=== PATIENT | female | born 1955 | race Caucasian/White ===

== ENCOUNTER 2025-01-30 14:49 | Outpatient (AMB) | payer OTHER, SELFPAY ==
--- NOTE | 2025-01-30 14:51 | MHC.OFFVIS ---
Vital Signs 01/30/25 14:53 Height 5 ft 6 in BMI Reason not done Patient refused/unable BP 138/80 Blood Pressure Location Rt brachial Position Sitting Pulse 93 Pulse Source Pulse Oximeter Pulse Oximetry (%) 95 Oxygen Delivery Method Room Air Intake Visit Reasons: alexandr Allergies metronidazole [From Flagyl] Allergy (Mild, Verified 01/30/25 14:57) Joint Pain HPI Comments Details: Dr. Salmon is here for pulmonary evaluation. The patient is a 69 year woman with known history of significant daytime drowsiness. She does have an elevated Social Circle score of 11/24. The patient did have a sleep study back in 2020 was found to have an AHI of 67 events per hour. Therefore she was diagnosed with very severe ALEXANDR. She was quickly placed on PAP therapy. The rest med AirSense 11. With a nasal mask. But he has been very difficult for her to tolerated because she gets significant nasal congestion when she start using it. She feels like it is almost like an allergic reaction. She has not tried any other mask except the N30 I mask. On further questioning she does have issues with significant nasal congestion. She has a perforated septum although she is not use any recreational drugs she is not aware why the cartilage broke down. She denies any other cartilage involvement. She does have significant irritation. To the nasal passages and does get pressure sensation. She has never seen ENT for this. In the meantime I do believe that is important to further investigate was going on with her sinuses in order to be able to tolerate CPAP or APAP effectively. The patient has not had any any allergy testing which would be reasonable as well. As far as nasal spray she is concerned about using any nasal steroids. Specially with the epistaxis in the significant inflammation limitations of mucosa lining I do believe the inhaled cortical steroids could be dangerous. She is using Claritin and antihistamines as needed with some partial improvement. I will go ahead and send a ipratropium nasal spray just to see if we can dry up a little bit as she tries to go back to using her CPAP. I did reach out to the [employer] to get access to LV. I do believe she needs a mask fitting with a fullface mask, F40 to properly treat her sleep apnea without irritating her significant inflammation of the nasal passages. I did provide her with the Neti bottle. She understands she can only use it with distilled water and we can do it as a trial as we refer the CAT scan. [facility] Medical History (Updated 01/30/25 @ 20:59 by Antonio Olivera MD) ALEXANDR (obstructive sleep apnea) Chronic sinusitis Epistaxis Allergy Social History (Updated 01/30/25 @ 14:57 by Mariam Garzon CMA) Patient Tobacco Use Status: Never used Tobacco Review of Systems Const Reports daytime sleepiness and Reports weight loss Eyes Reports no additional complaints ENT Reports epistaxis, Reports nasal congestion, Reports nasal discharge, Reports nasal obstruction, Reports post nasal drip and Reports sinus pressure Card Denies chest pain Resp Reports cough GI Reports no additional complaints Musc Reports no additional complaints Skin/Breast Denies rash Endo Reports no additional complaints Adan/Lymph Reports no additional complaints Aller/Immun Reports no additional complaints Physical Exam Vital Signs: Last Vital Signs Pulse 93 01/30/25 14:53 BP 138/80 01/30/25 14:53 Pulse Ox 95 01/30/25 14:53 Oxygen Delivery Method Room Air 01/30/25 14:53 Const General: comfortable HEENT General nose exam: Abnormal mucous membranes and turbinates present erythematous (R>L) bilateral, Abnormal nasal septum present perforated (bleeding), Nasal discharge present and Epistaxis present Neck Neck: Yes supple Chest Chest palpation & inspection: normal inspection of the chest Resp Effort & Inspection: normal respiratory effort Auscultation: clear to auscultation bilaterally Cardio Heart sounds: S1 normal heart sound present and S2 normal heart sound present GI Palpation (GI): Soft to palpation Skin General skin exam: no rashes or lesions noted Extrem General: Yes no clubbing, cyanosis or edema Assessment & Plan Assessment & Plan (1) Allergy: Code(s): T78.40XA - Allergy, unspecified, initial encounter Category: Medical Qualifiers: Encounter type: initial encounter Qualified Code(s): T78.40XA - Allergy, unspecified, initial encounter (2) Epistaxis: Code(s): R04.0 - Epistaxis Category: Medical (3) Chronic sinusitis: Code(s): J32.9 - Chronic sinusitis, unspecified Category: Medical Qualifiers: Sinusitis location: unspecified location Qualified Code(s): J32.9 - Chronic sinusitis, unspecified (4) Perforated nasal septum: Code(s): J34.89 - Other specified disorders of nose and nasal sinuses Category: Medical (5) ALEXANDR (obstructive sleep apnea): Code(s): G47.33 - Obstructive sleep apnea (adult) (pediatric) Category: Medical Plan Bloodwork and Allergy testing CT sinus to assess further the abnormalities. septal perforation due to an unclear etiology. No recreational drugs life long. Need to R/O smodering infections Ipratropium nasal spray as needed Sinus rinse trial with Distilled water and packet PM Restart APAP with Full face mask, F40. Requesting supplies from her Isiah [facility]HECO F/U 4-6 weeks Orders: Orders Resp Allergy Profile Region I Today R91.1 - Solitary pulmonary nodule, T78.40XA - Allergy, unspecified, initial encounter Complete Blood Count Auto Diff Today T78.40XA - Allergy, unspecified, initial encounter Erythrocyte Sedimentation Rate Today T78.40XA - Allergy, unspecified, initial encounter CT sinus wo IV con Today J32.9 - Chronic sinusitis, unspecified, J34.89 - Other specified disorders of nose and nasal sinuses, R04.0 - Epistaxis Medications: New ipratropium bromide administer into each nostril 2 sprays intranasal TID PRN 15 mL 6RF allergy symptoms ipratropium bromide administer into each nostril 2 sprays intranasal TID PRN 15 mL 6RF allergy symptoms Coding Level of Care Code New Pt Level 5 (15909) Diagnoses Allergy, initial encounter T78.40XA Encounter type: initial encounter Epistaxis R04.0 Chronic sinusitis, unspecified location J32.9 Sinusitis location: unspecified location Perforated nasal septum J34.89 ALEXANDR (obstructive sleep apnea) G47.33 Time Spent (min) 60
[2025-01-30 14:53] VITALS: BP 138/80; PULSE 93; O2SAT 95
--- OUTSIDE RECORDS SUMMARY | 2025-01-30 17:24 | XMS_ITS | Encounter Summary ---
Author Organization [facility] Address [address] [place] [address] Care Team Providers Care Blasting Worker Name Role Phone Colette Holman MD Primary Care Provider [phone] Reason for Referral * Consultation (Routine) - Authorized Specialty Diagnoses / Procedures Referred By Contандрей t Referred To Contact Dermatology Diagnoses Atypical pigmented skin lesion Colette Holman MD [address] [place], [place] Phone: tel: fax: [facility] [address] [place], [place] Phone: tel: Referral ID Status Reason Start Date Expiration Date Visits Requested Visits Authorized [id number] Authorized Specialty Services Required 01/27/2025 01/26/2026 10 10 Reason for Visit * Reason Comments Sleep Apnea Encounter Details Date Type Department Care Team ([facility] st Contact Info) Description 01/26/2025 2:00 PM EDT Office Visit Adult Medicine [facility] [place] [address] [place] [address] Colette Holman MD [address] [place] [address] White coat syndrome with hypertension (Primary Dx); ALEXANDR (obstructive sleep apnea); Atypical pigmented skin lesion; History of squamous cell carcinoma in situ (SCCIS) of skin; Hyperlipidemia, unspecified hyperlipidemia type Social History Tobacco Use Types Packs/Day Years Used Date Smoking Tobacco: Never Alcohol Use Standard Drinks/Week Comments Never 0 (1 standard drink = 0.6 oz pur e alcohol) Housing Instability Answer Date Recorde d Are you worried that in the next 2 months you may not have stable housing? No 01/25/2025 Food Access & Nutrition Answer Date Rec orded Do you have access to a vari ety of food including fruits and vegetables? Yes 01/25/2025 Access to Healthcare Answer Date Record ed Within the last 3 months, ho w many times did you visit the emergency department for your medical care? 0 01/25/2025 Health Literacy Answer Date Recorded How often do you need to hav e someone help you when you read instructions, pamphlets, or other written material from your doctor or pharmacy? Never 01/25/2025 Caregiver: How often do you need to have someone help you when you read instructions, pamphlets, or other written material from your doctor or pharmacy? Not on file 01/25/2025 Financial Risk Answer Date Recorded How hard is it for you to pa y for the very basics like food, housing, medical care, and air conditioning / heating? Not very hard 01/25/2025 Transportation Answer Date Recorded Has the lack of transportati on kept you from meetings, work, or from getting things needed for daily living? No Has the lack of transportati on kept you from medical appointments or from getting medications? No 01/25/2025 Social Isolation Answer Date Recorded How often do you feel lonely or isolated from th ose around you? Never 01/25/2025 Food Risk Answer Date Recorded Within the past 12 months we worried whether our food would run out before we got money to buy more. Never true 01/25/2025 Within the past 12 months th e food we bought just didn't last and we didn't have money to get more. Never true 01/25/2025 Dependent Care Answer Date Recorded Do you need help finding or paying for care for your loved ones. For example, child support specialist or elderly care for an older adult? No 01/25/2025 Education Answer Date Recorded Do you think completing more education or training, like finishing a GED, going to college, or learning a trade, would be helpful for you? No 01/25/2025 Employment and Income Answer Date Recor ded During the last four weeks, have you been actively looking for work? No 01/25/2025 Living Situation Answer Date Recorded What is your living situation? 0 01/25/2025 Comments Unknown Sex and Gender Information Value Date Recorded Sex Assigned at Female 01/25/2025 2:04 PM EDT Legal Sex Female 9:30 AM EST Gender Identity Female 01/25/2025 2:04 PM EDT Sexual Orientation Not on file Travel History Travel Start Travel End [place] 01/06/2025 01/11/2025 documented as of this encounter Last Filed Vital Signs Vital Sign Reading Time Taken Comments Blood Pressure 156/80 01/26/2025 1:54 PM EDT Pulse 87 01/26/2025 1:54 PM EDT Temperature 36.7 ??C (98 ??F) 01/26/2025 1:54 PM EDT Respiratory Rate - - Oxygen Saturation - - Inhaled Oxygen Concentration - - Weight - - Height 167.6 cm (5' 6 ) 01/26/2025 1:54 PM EDT Body Mass Index - - documented in this encounter Patient Instructions * Attachments The following attachments cannot be sent through Care Everywhere. * Diet: DASH (Togolese) * Exercise: General Info (Togolese) * Hypertension: Emergency or Urgency (Togolese) * Hypertension (Togolese) * Healthy Diet: Heart (Togolese) documented in this encounter Progress Notes * Colette Holman MD - 01/26/2025 2:00 PM EDT CHIEF COMPLAINT: Sleep Apnea IDENTIFIER: Aure Salmon is a 69 y.o. old female. HPI: History of Present Illness The patient presents for evaluation of elevated blood pressure, obstructive sleep apnea, and atypical lesion on left leg. She has a known history of sleep apnea, diagnosed in 2020, and is currently utilizing a CPAP machine. She reports issues with the device and has scheduled an appointment with her process coordinator on Thursday. She does not have a history of hypertension but acknowledges that her blood pressure tends to elevate in medical settings. At home, her blood pressure ranges from normal to borderline high. During her last visit with Dr. Voss in May, her blood pressure was notably high. She possesses a home blood pressure monitor but does not regularly check her readings. She maintains a healthy diet rich in vegetables and engages in regular physical activity. Her current medications include Naprosyn, anantihistamine as needed, and vitamin D. She is up-to-date with her eye examinations. She does not adhere to a low-salt diet but attempts to limit her intake of high-sodium foods. Her diet includes fried foods and red meat approximately twice a week. 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 Recently, she discovered a new lesion on her left leg, which has been present for approximately 2 weeks. The lesion is pink, non- blanching, and without any associated trauma. She has scheduled an appointment with dermatology for further evaluation and requires a referral. She will be seeing Adela Carl PA-C at [facility]. She has previously undergone treatment for squamous cell carcinoma on her back, which was also pink and in situ. She has a history of high cholesterol, last checked in 2013, but has never been on cholesterol medication. Supplemental Information She has undergone bilateral knee replacements and reports no current issues. She also had a hysterectomy due to menorrhagia and cataract surgery in both eyes. MEDICATIONS Naprosyn, antihistamine (as needed), vitamin D ROS: The remainder of review of systems is noncontributory. PAST MEDICAL HISTORY: Patient Active Problem List Diagnosis Date Noted White coat syndrome with hypertension 01/26/2025 History of squamous cell carcinoma in situ (SCCIS) of skin 01/26/2025 Atypical pigmented skin lesion 01/26/2025 Obstructive sleep apnea 09/02/2021 Right shoulder pain 07/30/2017 Atypical chest pain 12/23/2016 Colon polyps 09/25/2014 Diverticulosis 09/25/2014 Iron deficiency 09/25/2014 Hypertriglyceridemia 09/19/2014 Allergic rhinitis 07/18/2014 Osteoarthritis of both knees 07/18/2014 SOCIAL HISTORY: Social History Tobacco Use Smoking status: Never Smokeless tobacco: Not on file Substance Use Topics Alcohol use: Never FAMILY HISTORY: Family Status Relation Name Status Other p cousin 40s Alive Mother (Not Specified) Father (Not Specified) No partnership data on file Family History Problem Relation Name Age of Onset Breast cancer Other p cousin 40s Lung cancer Mother age 70 Prostate cancer Father age 78 ACTIVE MEDICATIONS: Outpatient Medications Marked as Taking for the 01/26/25 encounter (Office Visit) with Colette Holman MD Medication Sig Dispense Refill cholecalciferol (VITAMIN D-3) 25 mcg (1,000 unit) tablet Take by mouth daily. loratadine (CLARITIN) 10 mg tablet Take 10 mg by mouth daily. naproxen (NAPROSYN) 250 mg tablet Take 250 mg by mouth daily. ALLERGIES: Metronidazole PHYSICAL EXAM: Blood pressure (!) 156/80, pulse 87, temperature 36.7 ??C (98 ??F), height 1.676 m (66 ). There is no height or weight on file to calculate BMI. BMI is greater than 25.0 (above the normal range) - see Plan Physical Exam General Appearance: Normal. Vital signs: Within normal limits. HEENT: Within normal limits. Respiratory: Lungs are clear. Cardiovascular: Heart sounds are normal. Extremities: Atypical lesion noted on left leg. Skin: Warm and dry, no rash. Neurological: Normal. LABS: Results IMPRESSION: 1. White coat syndrome with hypertension 2. ALEXANDR (obstructive sleep apnea) 3. Atypical pigmented skin lesion 4. History of squamous cell carcinoma in situ (SCCIS) of skin 5. Hyperlipidemia, unspecified hyperlipidemia type PLAN: Orders Placed This Encounter Procedures Lipid panel with reflex to direct LDL Ambulatory referral to Dermatology Assessment & Plan 1. Obstructive sleep apnea. She is currently using a CPAP machine but is having issues with it. She will see her process coordinator on Thursday. 2. Elevated blood pressure, white coat syndrome in patient with HTN She experiences elevated blood pressure in medical settings but reports normal to borderline readings at home. She has been advised to monitor her blood pressure daily for at least 15 minutes and record the readings for review during the next visit. Information regarding dietary recommendations, exercise, and hypertension management will be provided in the after-visit summary. 3. Atypical lesion on left leg. She has identified a new pink lesion on her left leg, which does not jovon and has been present for about 2 weeks. Given her history of squamous cell carcinoma, a referral to dermatology has been initiated for further evaluation. She will see the PA at [facility] tomorrow. 4. History of squamous cell carcinoma. She had two squamous cell carcinomas in situ last year, which were treated. The new lesion on her left leg will be evaluated by dermatology. 5. Health maintenance. Her cholesterol levels will be rechecked as they were last assessed in 2013. PROCEDURE The patient has undergone bilateral knee replacements. She also had a hysterectomy due to menorrhagia. Cataract surgery was performed on both eyes. ADDITIONAL ORDERS: AMB REFERRAL TO DERMATOLOGY Colette Holman MD on 01/26/2025 at 2:31 PM EDT I have obtained verbal consent from Aure Salmon prior to the recording. I have advised Aure Salmon that she may refuse the recording and require the recording to be turned off at any time during this encounter. documented in this encounter Plan of Treatment Scheduled Orders Name Type Priority Associated Diagnoses Orde r Schedule Lipid panel with reflex to direct LDL Lab Routine Hyperlipidemia, unspecified hyperlipidemia type 1 Occurrences starting 01/26/2025 until 01/26/2026 Scheduled Referrals Name Type Priority Associated Diagnoses Order Schedule Ambulatory referral to Dermatology Outpatient Referral Routine Atypical pigmented skin lesion 1 Occurrences starting 01/26/2025 until 01/26/2026 documented as of this encounter Visit Diagnoses Diagnosis White coat syndrome with hypertension- Primary ALEXANDR (obstructive sleep apnea) Obstructive sleep apnea (adult) (pediatric) Atypical pigmented skin lesion History of squamous cell carcinoma in situ (SCCIS) of skin Hyperlipidemia, unspecified hyperlipidemia type documented in this encounter Additional Health Concerns Assessment Noted Time PHQ-9 Depression Total Score: 0 01/26/20 25 8:40 PM EDT documented as of this encounter Care Teams Blasting Worker Relationship Specialty Start Date End Date Colette Holman MD [address] [facility] [place] [address] PCP - General 06/15/24 documented as of this encounter
--- OUTSIDE RECORDS SUMMARY | 2025-01-30 17:24 | XMS_ITS | Clinical Summary ---
Author Organization [facility] Address [address] [place] [address] Phone Care Team Providers Care Tool Lathe Operator Name Role Phone Corine Alexandre MD Primary Care Pro vider Allergies Active Allergy Reactions Criticality Noted Date Comments Flagyl (Metronidazole) 03/20/2016 Medications Medication Sig Dispensed Refills Start Date End Date Status loratadine (CLARITIN) 10 mg tablet Take 10 mg by mouth daily. Active acetaminophen (TYLENOL) 500 MG tablet Take 2 tablets (1,000 mg total) by mouth 3 (three) times a day. 0 04/17/2017 Active lidocaine 5 % ointment Apply topically 3 (three) times a day as needed (Pain). Apply to areas of pain, avoid incisions or open skin, wear gloves when applying. 35.44 g 2 04/17/2017 Active Active Problems Problem Noted Date Diagnosed Date Status post total bilateral knee replacement Social History Tobacco Use Types Packs/Day Years Used Date Smoking Tobacco: Never Smokeless Tobacco: Never Alcohol Use Standard Drinks/Week Comments Not Asked 0 (1 standard drink = 0.6 oz pur e alcohol) Education Answer Date Recorded Are you interested in more education? Not on jay jay e 02/13/2023 Are you concerned about learning? Not on file 02/13/2023 No 02/13/2023 No 02/13/2023 Digital Access Answer Date Recorded No 03/15/2023 No 03/15/2023 No 03/15/2023 Reliable internet access at home? Not on file 03/15/2023 Device with a working camera? Not on file Sex and Gender Information Value Date Recorded Sex Assigned at Not on file Gender Identity Not on file Sexual Orientation Not on file Last Filed Vital Signs Vital Sign Reading Time Taken Comments Blood Pressure 149/86 04/18/2017 7:50 AM EDT Pulse 82 04/18/2017 7:50 AM EDT Temperature 36.9 ??C (98.5 ??F) 04/18/2017 7:50 AM ED T Respiratory Rate 19 04/18/2017 7:50 AM EDT Oxygen Saturation 94% 04/18/2017 7:50 AM EDT Inhaled Oxygen Concentration - - Weight 90.9 kg (200 lb 8 oz) 04/06/2017 7:00 PM EDT Height 167.6 cm (5' 6 ) 04/06/2017 7:00 PM EDT Body Mass Index 32.36 04/06/2017 7:00 PM EDT Plan of Treatment Health Maintenance Due Date Last Done Comments LIPID PANEL 1953 DEPRESSION SCREENING 1965 HEPATITIS C SCREENING 1971 MAMMOGRAM 1993 COLOGUARD 1998 COLONOSCOPY 1998 COLORECTAL CANCER SCREENING 1998 FIT TEST 1998 FOBT 1998 SIGMOIDOSCOPY 1998 VIRTUAL COLONOSCOPY 1998 PNEUMOCOCCAL VACCINES (50+ years) (1 of 1 - PCV) 2003 ZOSTER VACCINES (2 of 3) 11/13/2014 09/18/2014 OSTEOPOROSIS SCREENING INITIAL (ONE-TIME) 2018 INFLUENZA VACCINE (#1) 2024 9, 10/20/2018, 12/08/2017, Additional history exists COVID-19 VACCINE (3 - season) 2024 01/24/2021, 01/03/2021 Adult Td,Tdap Booster 07/18/2024 07/18/2014 RSV VACCINE (1 - 1-dose 75+ series) 2028 SMOKING STATUS SCREENING (Once After 26 Yrs) Completed 09/01/2022 HEPATITIS A VACCINES Aged Out No long er eligible based on patient's age to complete this topic HIB VACCINES Aged Out No longer eligi ble based on patient's age to complete this topic MENINGOCOCCAL VACCINES (ACWY) Aged Out No longer eligible based on patient's age to complete this topic Medical Devices Not on file Advance Directives For more information, please contact: [phone] (9AM - 5PM [facility], Thursday-Thursday) Documents on File Type Date Recorded Patient Cat Scan Technologist Expl anation Healthcare Proxy 04/07/2017 10:13 AM jordon d on 04/03/2017 * Full Code (Confirmed) (Latest Code Status on File) Date Activated Date Inactivated Comments 04/06/2017 7:02 PM 04/18/2017 2:00 PM Question Answer Comments Code Discussion Comments: patient Care Teams Tool Lathe Operator Relationship Specialty Start Date End Date Corine Alexandre MD [address] [place] [address] PCP - General Internal Medicine 04/07/17 Additional Source Comments The information contained in this document represents components of the legal health record. It is not the complete legal health record.[facility]
--- OUTSIDE RECORDS SUMMARY | 2025-01-30 17:24 | XMS_ITS | Clinical Summary ---
Author Organization [facility] [address] [facility] Building Address [address] [place] [address] Phone Care Team Providers Care It Security Engineer Name Role Phone Colette Holman MD Primary Care Provider Allergies Active Allergy Reactions Criticality Noted Date Comments Metronidazole 07/18/2014 Serum sickness Medications cholecalciferol (VITAMIN D-3) 25 mcg (1,000 unit) tablet Take by mouth daily. Active loratadine (CLARITIN) 10 mg tablet Take 10 mg by mouth daily. Active naproxen (NAPROSYN) 250 mg tablet Take 250 mg by mouth daily. 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 Right shoulder pain 07/30/2017 Atypical chest pain 12/23/2016 Overview (10/25/2024): Reassuring exercise stress test 12/17/2016 Colon polyps 09/25/2014 Overview (10/25/2024): Colonoscopy 06/27 Colonoscopy 12/21/14 - normal colonoscopy with left-sided diverticulosis and hemorrhoids; repeat colonoscopy in 5-10 years Diverticulosis 09/25/2014 Overview (10/25/2024): Found on colonoscopy 06/27 Iron deficiency 09/25/2014 Hypertriglyceridemia 09/19/2014 Allergic rhinitis 07/18/2014 Osteoarthritis of both knees 07/18/2014 Encounters Date Type Department Care Team Description 01/26/2025 2:00 PM EDT Office Visit Adult Medicine [address] [phone] Colette Holman MD White coat syndrome with hypertension (Primary Dx); ALEXANDR (obstructive sleep apnea); Atypical pigmented skin lesion; History of squamous cell carcinoma in situ (SCCIS) of skin; Hyperlipidemia, unspecified hyperlipidemia type 01/03/2025 Telephone Adult Medicine [address] [phone] Colette Holman MD 12/20/2024 Telephone Adult Medicine [address] [phone] Trinidad Monroe [place] 11/10/2024 Telephone Adult Medicine [address] [phone] Colette Holman MD Referral from Last 3 Months Immunizations Name Administration Dates Next Due Influenza Quadravalent, MDCK , 0.5ml, preservative free (Flucelvax) 6mo and older 10/20/2018 Influenza trivalent, 0.5mL ( Fluad) 65yo and older 09/09/2019 Influenza trivalent, 0.5mL, preservative free (Fluarix; FluLaval; Fluzone) ages 6mo and older (Afluria) 3 years and older 08/13/2016,08/29/2015,09/18/2014 Tdap Tetanus diptheria acell ular pertussis (Boostrix; Adacel) 7yo and older 07/18/2014 Zoster Live 09/18/2014 Surgical History Surgery Date Site/Laterality Comments OTHER SURGICAL HISTORY 2009 PROCEDURE: HISTORICAL SUPRACERVICAL HYSTERECTOMY W/O BSO OTHER SURGICAL HISTORY 2009 PROCEDURE: [place] ICAPSULAR CATARACT XTRJ INSJ IO LENS PRSTH 1 STG OTHER SURGICAL HISTORY 2008 PROCEDURE: [place] HYSTEROSCOPY ENDOMETRIAL ABLATION COLONOSCOPY 07.04.09 PROCEDURE: [place] COLONOSCOPY FLX DX W/COLLJ SPEC WHEN PFRMD OTHER SURGICAL HISTORY PROCEDURE: ---- OTHER ----; COMMENT: teeth extraction DENTAL SURGERY PROCEDURE: [place] UNLISTED PROCEDURE DENTOALVEOLAR STRUCTURES; COMMENT: dental implants BREAST BIOPSY Left PROCEDURE: BX BREAST; PERC NEEDLE CORE W/IMAG GUID; COMMENT: benign Medical History Medical History Date Comments Osteoarthritis of both knees DX: Osteoarthritis of both knees Allergic rhinitis DX:Allergic rh initis Iron deficiency 09/25/2014 DX:Iron deficien cy Diverticulosis 09/25/2014 DX:Diverticulosi s History of bilateral knee replacement History of hysterectomy History of cataract surgery Family History Medical History Relation Name Comments Prostate cancer Father age 78 Lung cancer Mother age 70 Breast cancer Other p cousin 40s Relation Name Status Comments Father Mother Other p cousin 40s Alive Social History Tobacco Use Types Packs/Day Years [...] care for your loved ones. For example, early childhood special educator or elderly care for an older adult? [...] file Travel History Travel Start Travel End [place] 01/06/2025 01/11/2025 Obstetrics History Last Filed Vital Signs Vital Sign Reading Time Taken Comments Blood Pressure 156/80 01/26/2025 1:54 PM EDT Pulse 87 01/26/2025 1:54 PM EDT Temperature 36.7 ??C (98 ??F) 01/26/2025 1:54 PM EDT Respiratory Rate - - Oxygen Saturation - - Inhaled Oxygen Concentration - - Weight - - Height 167.6 cm (5' 6 ) 01/26/2025 1:54 PM EDT Body Mass Index - - Plan of Treatment Health Maintenance Due Date Last Done Comments Cholesterol Screening (Lipid Panel) 09/27/2022 09/18/2014 Osteoporosis Screening (Bone Density Screening) 09/27/2022 DTaP,Tdap,and Td Vaccines (2 - Td or Tdap) 07/18/2024 07/18/2014 Hypertension/CHF/CAD Annual BMP Blood Test 01/26/2025 08/22/2015 Breast Cancer Screening 11/19/2025 11/19/19 24, 11/12/2022, 11/07/2021, Additional history exists Depression Screening 01/25/2026 01/25/2025 Social Influencers of Health Screening 01/25/2026 01/25/2025 Falls Risk Assessment 01/26/2026 01/26/2025 Colorectal Cancer Screening: Colonoscopy 07/15/2026 07/15/2021 RSV Immunization Adult Patients (1 - 1-dose 75+ series) 2028 Hepatitis C Screening Completed 09/18/2014 Zoster Vaccines Completed 10/01/2023, 0 04/2023, 09/18/2014 COVID-19 Vaccine Completed 07/13/2024, 04/2023, 08/31/2022, Additional history exists Influenza Vaccine Completed 10/21/2024, , 08/30/2022, Additional history exists Pneumococcal Vaccine: 50+ Years Completed 10/28/2024 HIB Vaccines Aged Out No longer eligi ble based on patient's age to complete this topic HPV Vaccines Aged Out No longer eligi ble based on patient's age to complete this topic Hepatitis A Vaccines Aged Out No long er eligible based on patient's age to complete this topic Hepatitis B Vaccines Aged Out No long er eligible based on patient's age to complete this topic IPV Vaccines Aged Out No longer eligi ble based on patient's age to complete this topic MMR Vaccines Aged Out No longer eligi ble based on patient's age to complete this topic Meningococcal ACWY Vaccine Aged Out N o longer eligible based on patient's age to complete this topic Meningococcal B Vaccine Aged Out No l onger eligible based on patient's age to complete this topic RSV Immunization Patients Under 20 months Aged Out No longer eligible based on patient's age to complete this topic Varicella Vaccines Aged Out No longer eligible based on patient's age to complete this topic Procedures Procedure Name Priority Date/Time Associated Diagnosis Comments SCREENING MAMMOGRAPHY BI 2-VIEW BREAST INC CAD Routine 11/19/2023 9:50 AM EST Encounter for screening mammogram for malignant neoplasm of breast COLONOSCOPY Routine 07/15/2021 ANNUAL BMP BLOOD TEST Routine 08/22/2015 HEPATITIS C SCREENING Routine 09/18/2014 LIPID PANEL Routine 09/18/2014 from Last 3 Months or Most Recently Relevant to Health Maintenance Results * SCREENING MAMMOGRAPHY BI 2-VIEW BREAST INC CAD (11/19/2023 9:50 AM EST) Anatomical Region Laterality Modality Radiographic Adele ging 11/12/2022 9:53 AM EST Narrative 11/19/2023 1:06 PM EST This is a summary report. The complete report is available in the patient's medical record. If you cannot access the medical record, please contact the sending organization for a detailed fax or copy. Full field digital screening tomosynthesis mammography, reviewed with CAD and compared to previous. The breasts are composed of fatty and fibroglandular tissue. ??No suspicious mass, architectural distortion or suspicious calcifications are identified. IMPRESSION: : No mammographic evidence of malignancy. BIRADS 1-Negative; N. 5 year breast cancer risk assessment 2.3 % Lifetime breast cancer risk assessment 6.6 % Breast cancer risk category Low (<15%) Procedure Note Jagdish Conway MD - 06/06/2024 This is a summary report. The complete report is available in thepatient's medical record. If you cannot access the medical record, pleasecontact the sending organization for a detailed fax or copy. Full field digital screening tomosynthesis mammography, reviewed with CADand compared to previous. The breasts are composed of fatty andfibroglandular tissue. No suspicious mass, architectural distortion orsuspicious calcifications are identified. IMPRESSION: : No mammographic evidence of malignancy. BIRADS 1-Negative; N. 5 year breast cancer risk assessment 2.3 % Lifetime breast cancer risk assessment 6.6 % Breast cancer risk category Low (<15%) Result [facility] Donna HOWARD IMG XR PROCEDURES Final Resul t * Colonoscopy (07/15/2021) [facility] Colonoscopy No Interpretation , Abstracted Anatomical Region Laterality Modality Other Result [facility] HEALTH MAINTENANCE Final Result * Annual BMP Blood Test (08/22/2015) [facility] Annual BMP Blood Test Abstracted Result [facility] Final Result * Hepatitis C Screening (09/18/2014) [facility] Hepatitis C Screening Abstracted Result [facility] Final Result * (ABNORMAL) Lipid panel (09/18/2014) [facility] LDL/HDL Ratio 7(A) 0 - 4 Triglycerides 321(A) 0 - 150 mg/dL Cholesterol 245(A) 0 - 200 mg/dL HDL 33(A) >=40 mg/dL LDL Cholesterol 148(A) 0 - 100 mg/dL Blood Venous blood specimen / Unknown Result [facility] LAB BLOOD ORDERABLES Jyoti l Result from Last 3 Months or Most Recently Relevant to Health Maintenance Insurance MEDICARE [facility] Care Teams It Security Engineer Relationship Specialty Start Date End Date Coletet Holman MD [address] [place] [address] PCP - General 06/15/24
== END 2025-01-30 15:30 | disposition home or self-care (01) ==
LOC: HO.HPS 14:49
PROVIDERS: PCP Physician Assistant Surgical; Visit Provider Hospitalist
DX: T78.40XA Allergy, unspecified, initial encounter (principal); R04.0 Epistaxis; J32.9 Chronic sinusitis, unspecified; J34.89 Other specified disorders of nose and nasal sinuses; G47.33 Obstructive sleep apnea (adult) (pediatric)
CPT/HCPCS: 99205

== ENCOUNTER 2025-01-30 14:49 | Outpatient (REF) | payer OTHER, SELFPAY ==
[2025-01-30 15:47] LABS: MANUAL DIFF FLAG NO
[2025-01-30 17:12] LABS: Basophils Absolute Auto 0.1 X10*3/uL (0.0-0.2); Basophils Percent Auto 0.6 % (0-2); Eosinophils Absolute Auto 0.3 X10*3/uL (0.0-0.4); Hematocrit 43.7 % (37.0-47.0); Hemoglobin 14.3 g/dl (12.0-16.0); Imm Gran Abs Auto 0.06 X10*3/uL (0.00-0.03); Imm Gran Pct Auto 0.6 % (0.0-0.4); Lymphocytes Absolute Auto 2.2 X10*3/uL (1.2-4.9); Lymphocytes Percent Auto 22.7 % (20-40); Mean Corpuscular HGB Conc 32.7 g/dl (31.0-35.0); Mean Corpuscular Hemoglobin 28.8 pg (27.0-33.0); Mean Corpuscular Volume 87.9 fL (80.0-98.0); Mean Platelet Volume 10.5 fL (9.4-12.3); Monocytes Absolute Auto 0.6 X10*3/uL (0.1-1.2); Monocytes Percent Auto 6.1 % (2-11); Neutrophils Absolute Auto 6.6 x10*3/uL (2.0-8.3); Platelet Count 346 X10*3/uL (160-400); Red Blood Count 4.97 X10*6/uL (4.20-5.50); Red Cell Distribution Width 14.1 % (11.0-16.0); White Blood Count 9.9 X10*3/uL (4.8-10.8)
[2025-01-30 18:00] LABS: Erythrocyte Sedimentation Rate 15 MM/HR (0-20)
--- OUTSIDE RECORDS SUMMARY | 2025-01-30 18:00 | XMS_ITS | Clinical Summary ---
Author Organization [facility] [address] [facility] Building Address [address] [facility] [place] [address] Phone Care Team Providers Care Shell Reprint Operator Name Role Phone Colette Holman MD Primary [...] 2:00 PM EDT Office Visit Adult Medicine [address] [phone] Colette Holman MD White coat syndrome with hypertension (Primary Dx); ALEXANDR (obstructive sleep apnea); Atypical pigmented skin lesion; History of squamous cell carcinoma in situ (SCCIS) of skin; Hyperlipidemia, unspecified hyperlipidemia type 01/03/2025 Telephone Adult Medicine [address] [phone] Colette Holman MD 12/20/2024 Telephone Adult Medicine [address] [phone] Trinidad Monroe [place] 11/10/2024 Telephone Adult Medicine [address] [phone] Colette Holman MD Referral from Last 3 [...] W/O BSO OTHER SURGICAL HISTORY 2009 PROCEDURE: [place] ICAPSULAR CATARACT XTRJ INSJ IO LENS PRSTH 1 STG OTHER SURGICAL HISTORY 2008 PROCEDURE: [place] HYSTEROSCOPY ENDOMETRIAL ABLATION COLONOSCOPY 07.04.09 PROCEDURE: [place] COLONOSCOPY FLX DX W/COLLJ SPEC WHEN PFRMD OTHER SURGICAL HISTORY PROCEDURE: ---- OTHER ----; COMMENT: teeth extraction DENTAL SURGERY PROCEDURE: [place] UNLISTED PROCEDURE DENTOALVEOLAR STRUCTURES; COMMENT: dental implants [...] care for your loved ones. For example, children's program coordinator or elderly care for an older adult? [...] file Travel History Travel Start Travel End [place] 01/06/2025 01/11/2025 Obstetrics History Last Filed Vital [...] Breast cancer risk category Low (<15%) Result [facility] Donna HOWARD IMG XR PROCEDURES Final Resul t * Colonoscopy (07/15/2021) [facility] Colonoscopy No Interpretation , Abstracted Anatomical Region Laterality Modality Other Result [facility] HEALTH MAINTENANCE Final Result * Annual BMP Blood Test (08/22/2015) [facility] Annual BMP Blood Test Abstracted Result [facility] Final Result * Hepatitis C Screening (09/18/2014) [facility] Hepatitis C Screening Abstracted Result [facility] Final Result * (ABNORMAL) Lipid panel (09/18/2014) [facility] LDL/HDL Ratio 7(A) 0 - 4 Triglycerides 321(A) 0 - 150 mg/dL Cholesterol 245(A) 0 - 200 mg/dL HDL 33(A) >=40 mg/dL LDL Cholesterol 148(A) 0 - 100 mg/dL Blood Venous blood specimen / Unknown Result [facility] LAB BLOOD ORDERABLES Jyoti l Result from Last 3 Months or Most Recently Relevant to Health Maintenance Insurance MEDICARE [facility] Care Teams Shell Reprint Operator Relationship Specialty Start Date End Date Colette Holman MD [address] [place] [address] PCP - General 06/15/24
--- OUTSIDE RECORDS SUMMARY | 2025-01-30 18:00 | XMS_ITS | Encounter Summary ---
Author Organization [facility] [address] Address [address] [place] [address] Care Team Providers Care Warehouse Examiner Name Role Phone Colette Holman MD Primary Care Provider [phone] Reason for Referral * Consultation (Routine) - Authorized Specialty Diagnoses / Procedures Referred By Contандрей t Referred To Contact Dermatology Diagnoses Atypical pigmented skin lesion Colette Holman MD [address] [place], [place] Phone: tel: fax: [facility] [address], [place] Phone: tel: Referral ID Status Reason Start Date Expiration Date Visits Requested Visits Authorized [id number] Authorized Specialty Services Required 01/27/2025 01/26/2026 10 10 Reason for Visit * Reason Comments Sleep Apnea Encounter Details Date Type Department Care Team ([facility] st Contact Info) Description 01/26/2025 2:00 PM EDT Office Visit Adult Medicine [facility] [address] [place] [address] Colette Holman MD [address] [place] [address] White coat syndrome with hypertension (Primary Dx); [...] your loved ones. For example, early childhood worker or elderly care for an older adult? [...] file Travel History Travel Start Travel End [place] 01/06/2025 01/11/2025 documented as of this encounter [...] sent through Care Everywhere. * Diet: DASH (Azerbaijani) * Exercise: General Info (Azerbaijani) * Hypertension: Emergency or Urgency (Azerbaijani) * Hypertension (Azerbaijani) * Healthy Diet: Heart (Azerbaijani) documented in this encounter Progress Notes * [...] and has scheduled an appointment with her software configuration specialist on Thursday. She does not have a [...] will be seeing Adela Carl PA-C at [facility]. She has previously undergone treatment for [...] issues with it. She will see her software configuration specialist on Thursday. 2. Elevated blood pressure, white [...] evaluation. She will see the PA at [facility] tomorrow. 4. History of squamous cell [...] documented as of this encounter Care Teams Warehouse Examiner Relationship Specialty Start Date End Date Colette Holman MD [address] [place] [address] PCP - General 06/15/24 documented as of this encounter
[2025-02-07 12:13] LABS: Class Cat Dander 0/1; Class Dermatophagoides farinae 0/1; D002 - IgE D farinae 0.29; E001 - IgE Cat Dander 0.25
[2025-02-07 12:14] LABS: Class Alternaria alternata 0; Class Aspergillus fumigatus 0; Class Bermuda Grass 0; Class Cladosporium herbarum 0; Class Cockroach 0; Class Common Ragweed 0; Class Cottonwood 0; Class Derm. pterony 0; Class Dog Dander 0; Class Mountain Cedar 0; Class Mouse Urine Protein 0; Class Mugwort 0; Class Oak 0; Class Sycamore 0; Class Timothy Grass 0; Class Walnut Tree 0; Class White Ash 0; Class White Mulberry 0; D001 IgE D pteronyssinus <0.10; E005 - IgE Dog Dander <0.10; E072-IgE Mouse Urine <0.10; G002 IgE Bermuda Grass <0.10; G006 - IgE Timothy Grass <0.10; I006-IgE Cockroach, German <0.10; Immunoglobulin E 48; M002 - IgE Cladosporium herbar <0.10; M003 - IgE Aspergillus fumigat <0.10; M006 - IgE Alternaria alternat <0.10; T006 - IgE Cedar, Mountain <0.10; T007 - IgE Oak, White <0.10; T010 - IgE Walnut <0.10; T011 - IgE Maple Leaf Sycamore <0.10; T014 - IgE Cottonwood <0.10; T015 - IgE Ash, White <0.10; T070 - IgE White Mulberry <0.10; W001 - IgE Ragweed, Short <0.10; W006 - IgE Mugwort <0.10
[2025-02-07 12:15] LABS: Class Birch 0; Class Elm 0; Class Maple Box Elder 0; Class Penicillium crysogenum 0; Class Rough Pigweed 0; Class Sheep Sorrel 0; M001 IgE Penicillium chrysogen <0.10; T001 IgE Maple/Box Elder <0.10; T003 IgE Common Silver Birch <0.10; T008 IgE Elm, American <0.10; W014 IgE Pigweed, Common <0.10; W018 IgE Sheep Sorrel <0.10
== END 2025-01-30 14:50 | disposition home or self-care (01) ==
LOC: HO.LAB 14:49
PROVIDERS: PCP Physician Assistant Surgical; Visit Provider Hospitalist
DX: R91.1 Solitary pulmonary nodule (principal); T78.40XA Allergy, unspecified, initial encounter
CPT/HCPCS: 36415; 82785; 85025; 85652; 86003

== ENCOUNTER 2025-03-03 12:40 | Outpatient (REF) | payer OTHER, SELFPAY ==
--- NOTE | ~2025-03-03 | CT_ITS ---
CLINICAL HISTORY: R04.0 - Epistaxis CT sinuses without contrast Comparison: None Findings: Mild mucosal thickening of the bilateral maxillary sinus. The ostiomeatal units are patent. There is deviation of the nasal septum to the right. The nasal airways are patent. No nasal polyps or masses. The orbits are normal. No acute fractures. IMPRESSION: Mild bilateral maxillary sinusitis. Rightward deviation of the nasal septum. This document has been electronically signed by: Judi Claudio MD on 03/07/2025 13:10:59
--- OUTSIDE RECORDS SUMMARY | 2025-03-03 12:42 | XMS_ITS | Clinical Summary ---
Author Organization [facility] Address [address] [facility] [address] [place] [address] Phone Care Team Providers Care Squad Leader Name Role Phone Corine Alexandre MD Primary Care Pro vider Allergies Active Allergy Reactions Criticality Noted Date Comments Flagyl (Metronidazole) 03/20/2016 Medications loratadine (CLARITIN) 10 mg tablet Take 10 mg by mouth daily. Active acetaminophen (TYLENOL) 500 MG tablet Take 2 tablets (1,000 mg total) by mouth 3 (three) times a day. 0 7 Active lidocaine 5 % ointment Apply topically 3 (three) times a day as needed (Pain). Apply to areas of pain, avoid incisions or open skin, wear gloves when applying. 35.44 g 2 7 Active Active Problems Problem Noted Date Diagnosed [...] with a working camera? Not on file Comments Unknown Sex and Gender Information Value Date Recorded Sex Assigned at Not on file Legal Sex Female 3:11 PM EDT Gender Identity Not on file Sexual Orientation [...] this topic Medical Devices Not on file Insurance [facility] Advance Directives For more information, please contact: [phone] (9AM - 5PM Nicole/[facility]_Prue, Thursday-Thursday) Documents on File Type Date Recorded Patient Supervisor [employer] Expl anation Healthcare Proxy 04/07/2017 10:13 AM jordon d on 04/03/2017 * Full Code (Confirmed) (Latest Code Status on File) Date Activated Date Inactivated Comments 04/06/2017 7:02 PM 04/18/2017 2:00 PM Question Answer Comments Code Discussion Comments: patient Care Teams Squad Leader Relationship Specialty Start Date End Date Corine Alexandre MD [address] [facility] [address] PCP - General Internal Medicine 04/07/17 Additional Source Comments The information contained in this document represents components of the legal health record. It is not the complete legal health record.[facility]
--- OUTSIDE RECORDS SUMMARY | 2025-03-03 12:42 | XMS_ITS | Clinical Summary ---
Author Organization [facility] [address] [facility] Building Address [address] [place] [address] Phone Care Team Providers Care Drapery Rod Assembler Name Role Phone Colette Holman MD Primary Care Provider [phone] Allergies Active Allergy Reactions Criticality Noted Date [...] 2:00 PM EDT Office Visit Adult Medicine [address] [phone] Colette Holman MD White coat syndrome with hypertension (Primary Dx); ALEXANDR (obstructive sleep apnea); Atypical pigmented skin lesion; History of squamous cell carcinoma in situ (SCCIS) of skin; Hyperlipidemia, unspecified hyperlipidemia type 01/03/2025 Telephone Adult Medicine [address] [phone] Colette Holman MD 12/20/2024 Telephone Adult Medicine [address] [phone] Trinidad Monroe [place] from Last 3 Months Immunizations Name Administration [...] W/O BSO OTHER SURGICAL HISTORY 2009 PROCEDURE: [place] ICAPSULAR CATARACT XTRJ INSJ IO LENS PRSTH 1 STG OTHER SURGICAL HISTORY 2008 PROCEDURE: [place] HYSTEROSCOPY ENDOMETRIAL ABLATION COLONOSCOPY 916 PROCEDURE: [place] COLONOSCOPY FLX DX W/COLLJ SPEC WHEN PFRMD OTHER SURGICAL HISTORY PROCEDURE: ---- OTHER ----; COMMENT: teeth extraction DENTAL SURGERY PROCEDURE: [place] UNLISTED PROCEDURE DENTOALVEOLAR STRUCTURES; COMMENT: dental implants [...] Record ed Within the last 3 months, belle fajardo many times did you visit the emergency [...] for your loved ones. For example, child welfare specialist or elderly care for an older [...] PM EDT Sexual Orientation Not on file Obstetrics History Last Filed Vital Signs Vital [...] (2 - Td or Tdap) 07/18/2024 07/18/2014 COVID-19 Vaccine (8 - Pfizer risk season) 2025 07/13/2024, 09/24/2023, 08/31/2022, Additional history exists Hypertension/CHF/CAD Annual BMP Blood Test 01/26/2025 08/22/2015 Breast Cancer Screening 11/19/2025 11/19/19, 11/12/2022, 11/07/2021, Additional history exists Depression Screening 01/25/2026 01/25/2025 Social Influencers of Health Screening 01/25/2026 01/25/2025 Falls Risk Assessment 01/26/2026 01/26/2025 Colorectal Cancer Screening: Colonoscopy 07/15/2026 07/15/2021 RSV Immunization Adult Patients (1 - 1-dose 75+ series) 2028 Hepatitis C Screening Completed 09/18/2014 Zoster Vaccines Completed 10/01/2023, 04/2023, 09/18/2014 Influenza Vaccine Completed 10/21/2024, , 08/30/2022, Additional [...] % Breast cancer risk category Low (<15%) Donna HOWARD IMG XR PROCEDURES Final Resul t * Colonoscopy (07/15/2021) Pathologist [facility] Colonoscopy No Interpretation , Abstracted Anatomical Region Laterality Modality Other Historical Provider HEALTH MAINTENANCE Final Result * Annual BMP Blood Test (08/22/2015) Pathologist [facility] Annual BMP Blood Test Abstracted Historical Provider HEALTH MAINTENANCE Final Result * Hepatitis C Screening (09/18/2014) Pathologist [facility] Hepatitis C Screening Abstracted [facility] Provider MD HEALTH MAINTENANCE Final Result * (ABNORMAL) Lipid panel (09/18/2014) Pathologist [facility] LDL/HDL Ratio 7(A) 0 - 4 Triglycerides 321(A) 0 - 150 mg/dL Cholesterol 245(A) 0 - 200 mg/dL HDL 33(A) >=40 mg/dL LDL Cholesterol 148(A) 0 - 100 mg/dL Blood Venous blood specimen / Unknown Historical Provider LAB BLOOD ORDERABLES Jyoti l Result from Last 3 Months or Most Recently Relevant to Health Maintenance Insurance MEDICARE [facility] Care Teams Drapery Rod Assembler Relationship Specialty Start Date End Date Colette Holman MD [address] [place] [address] PCP - General 06/15/24
== END 2025-03-03 12:41 | disposition home or self-care (01) ==
LOC: HO.CT 12:40
PROVIDERS: PCP Physician Assistant Surgical; Visit Provider Hospitalist
DX: R04.0 Epistaxis (principal); J32.9 Chronic sinusitis, unspecified; J34.89 Other specified disorders of nose and nasal sinuses
CPT/HCPCS: 70486

== ENCOUNTER → 2025-03-03 12:41 | Outpatient (BNV) | payer OTHER, SELFPAY | PROVIDERS: PCP Physician Assistant Surgical; Visit Provider Nuclear Medicine | DX: J34.2 Deviated nasal septum (principal) | CPT/HCPCS: 70486 ==

== ENCOUNTER 2025-03-16 12:50 | Outpatient (AMB) | payer OTHER, SELFPAY ==
--- NOTE | 2025-03-16 12:53 | MHC.OFFVIS ---
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 She does have an elevated Flint score of 11. The patient did have a sleep study back in 2020 was found to have an AHI of 67 events per hour. Therefore she was diagnosed with very severe ALEXANDR. She was quickly placed on PAP therapy. The rest med AirSense 11. With a nasal mask. But he has been very difficult for her to tolerated because she gets significant nasal congestion when she start using it. She feels like it is almost like an allergic reaction. She has not tried any other mask except the N30 I mask. On further questioning she does have issues with significant nasal congestion. She has a perforated septum although she is not use any recreational drugs she is not aware why the cartilage broke down. She denies any other cartilage involvement. She does have significant irritation. To the nasal passages and does get pressure sensation. She has never seen ENT for this. In the meantime I do believe that is important to further investigate was going on with her sinuses in order to be able to tolerate CPAP or APAP effectively. The patient has not had any any allergy testing which would be reasonable as well. As far as nasal spray she is concerned about using any nasal steroids. Specially with the epistaxis in the significant inflammation limitations of mucosa lining I do believe the inhaled cortical steroids could be dangerous. She is using Claritin and antihistamines as needed with some partial improvement. I will go ahead and send a ipratropium nasal spray just to see if we can dry up a little bit as she tries to go back to using her CPAP. I did reach out to the [employer] to get access to LV. I do believe she needs a mask fitting with a fullface mask, F40 to properly treat her sleep apnea without irritating her significant inflammation of the nasal passages. I did provide her with the Neti bottle. 03/16/2025 the patient is here for pulmonary follow-up visit. Overall she is doing okay. Still having same issues with her significant congestion or upper respiratory tract and sinuses that is keeping her from tolerate the CPAP. She did start the ipratropium nasal spray that seemed to help during the day but when she would put her CPAP mask on it would worsen again and if therefore she has not been to tolerated. The patient did get blood work including allergy testing. IgE levels were only 48 eosinophils were normal and the allergy panel was negative. In addition to that she did have a CT scan of the sinuses demonstrating mild maxillary sinusitis and a deviated septum along with perforation noted. The patient understands that based on his significant sinus congestion she is better off with a fullface mask. I am going to send a prescription to [employer] for 40 fullface mask to help us try to decrease some of the pressure buildup in her nasal passages. I am also going to request axis from her [employer] company [employer] to be able to adjusting May she had accordingly. Maybe we can decrease the pressure some so she can tolerated better. But also we talked about the idiosyncratic reaction when we do not use any humidification for the dry air. They can result in a it isn't chronic worsening congestion which may be contributing to her symptoms. Therefore she is going to start adding humidity by adding distilled water to her chamber and to use it more effectively. [facility] Medical History (Updated 01/30/25 @ 20:59 by Antonio Olivera MD) ALEXANDR (obstructive sleep apnea) Chronic sinusitis Epistaxis Allergy Social History Patient Tobacco Use Status: Never used Tobacco Review of Systems Const Reports daytime sleepiness and Reports weight loss Eyes Reports no additional complaints ENT Reports epistaxis, Reports nasal congestion, Reports nasal discharge, Reports nasal obstruction, Reports post nasal drip and Reports sinus pressure Card Denies chest pain Resp Reports cough GI Reports no additional complaints Musc Reports no additional complaints Skin/Breast Denies rash Endo Reports no additional complaints Adan/Lymph Reports no additional complaints Aller/Immun Reports no additional complaints Physical Exam Vital Signs: Last Vital Signs Pulse 90 03/16/25 12:54 BP 152/80 H 03/16/25 12:54 Pulse Ox 95 03/16/25 12:54 Oxygen Delivery Method Room Air 03/16/25 12:54 Const General: comfortable HEENT General nose exam: Abnormal mucous membranes and turbinates present erythematous (R>L) bilateral, Abnormal nasal septum present perforated (bleeding), Nasal discharge present and Epistaxis present Neck Neck: Yes supple Chest Chest palpation & inspection: normal inspection of the chest Resp Effort & Inspection: normal respiratory effort Auscultation: clear to auscultation bilaterally Cardio Heart sounds: S1 normal heart sound present and S2 normal heart sound present GI Palpation (GI): Soft to palpation Skin General skin exam: no rashes or lesions noted Extrem General: Yes no clubbing, cyanosis or edema Assessment & Plan Assessment & Plan (1) Allergy: Code(s): T78.40XA - Allergy, unspecified, initial encounter Category: Medical Qualifiers: Encounter type: initial encounter Qualified Code(s): T78.40XA - Allergy, unspecified, initial encounter (2) Epistaxis: Code(s): R04.0 - Epistaxis Category: Medical (3) Chronic sinusitis: Code(s): J32.9 - Chronic sinusitis, unspecified Category: Medical Qualifiers: Sinusitis location: unspecified location Qualified Code(s): J32.9 - Chronic sinusitis, unspecified (4) Perforated nasal septum: Code(s): J34.89 - Other specified disorders of nose and nasal sinuses Category: Medical (5) ALEXANDR (obstructive sleep apnea): Code(s): G47.33 - Obstructive sleep apnea (adult) (pediatric) Category: Medical Plan Ipratropium nasal spray as needed start Astelin nasal spray Sinus rinse trial with Distilled water and packet PM Restart APAP with Full face mask, F40. Requesting supplies from her [facility] [employer]. Add Humidification F/U 3 months Medications: New azelastine administer into each nostril 2 sprays intranasal BID 30 mL 6RF 30 days Coding Level of Care Code Est Pt Level 4 (45431) Diagnoses Allergy, initial encounter T78.40XA Encounter type: initial encounter Epistaxis R04.0 Chronic sinusitis, unspecified location J32.9 Sinusitis location: unspecified location Perforated nasal septum J34.89 ALEXANDR (obstructive sleep apnea) G47.33 Time Spent (min) 17
[2025-03-16 12:54] VITALS: BP 152/80; PULSE 90; O2SAT 95
--- OUTSIDE RECORDS SUMMARY | 2025-03-16 12:54 | XMS_ITS | Encounter Summary ---
Author Organization [facility] Address [address] [place] [address] Care Team Providers Care Final Rail Cutter Name Role Phone Colette Holman MD Primary Care Provider [phone]- [phone] Reason for Referral * Consultation (Routine) - Pending Review Specialty Diagnoses / Procedures Referred By Brody gonzalez Referred To Contact Dermatology Diagnoses Skin cancer Colette Holman MD [address] [facility], [place] Phone: tel: fax: Referral ID Status Reason Start Date Expiration Date Visits Requested Visits Authorized [id number] Pending Review Specialty Services Required 03/09/2025 03/09/2026 1 1 Reason for Visit * Reason Onset Date Comments Referral 03/09/2025 Dermatology Encounter Details Date Type Department Care Team ([facility] st Contact Info) Description 03/09/2025 Telephone Adult Medicine [facility] [address] [place] [address] Colette Holman MD [address] [place], [place] Referral (Dermatology) Social History Tobacco Use Types Packs/Day Years [...] care for your loved ones. 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 [...] PM EDT Sexual Orientation Not on file documented as of this encounter Progress Notes * Bhavana Pérez - 03/09/2025 1:43 PM EDT Referral Request: What insurance does the patient have today? [facility] [id number] Referrals cannot be processed if the insurance is not accurate. If the insurance listed above in red is NO BILLING INFORMATION FOUND FOR THIS ENCOUTNER The patients correct insurance must be obtained and registered in [facility] or their referral can not be processed. Who is calling to request this referral? The patient If the caller is not the patient, what is their name? Ask the patient WHO referred them to this specialty: Not an initial visit; it is for follow up/continuation of care. Patients PCP is Dr. Holman FIRST and LAST NAME of SPECIALIST PATIENT is seeing: [facility] What specialty is this? Dermatology DIAGNOSIS Patient is being seen for (Not a body part or a procedure): skin cancer follow up Have you seen this SPECIALIST for this PROBLEM/DX before? If YES, when? Yes. 2024 Have you checked REVIEW or the APPT DESK to see if this referral has already been done or has visits left? yes Is this visit: Follow Up Address of Specialist: [address] [place] [address] Phone # of Specialist: [phone] Fax #: (if applicable): [phone] Does patient have an appointment scheduled?: yes Date of appointment- (including a retro-request): 03/22/25 Is this appointment related to: Not MVA, worker compensation, or surgery related documented in this encounter Plan of Treatment Scheduled Referrals Name Type Priority Associated Diagnoses Order Schedule Ambulatory referral to Dermatology Outpatient Referral Routine Skin cancer 1 Occurrences starting 03/09/2025 until 03/09/2026 documented as of this encounter Visit Diagnoses Diagnosis Skin cancer- Primary Other malignant neoplasm of skin, site unspecified documented in this encounter Additional Health Concerns Assessment Noted Time PHQ-9 Depression Total Score: 0 01/26/20 25 8:40 PM EDT documented as of this encounter Care Teams Final Rail Cutter Relationship Specialty Start Date End Date Colette Holman MD [address] [place] [address] PCP - General 06/15/24 documented as of this encounter
== END 2025-03-16 13:28 | disposition home or self-care (01) ==
LOC: HO.HPS 12:50
PROVIDERS: PCP Physician Assistant Surgical; Visit Provider Hospitalist
DX: T78.40XA Allergy, unspecified, initial encounter (principal); R04.0 Epistaxis; J32.9 Chronic sinusitis, unspecified; J34.89 Other specified disorders of nose and nasal sinuses; G47.33 Obstructive sleep apnea (adult) (pediatric)
CPT/HCPCS: 99214

== ENCOUNTER 2025-06-09 12:54 | Outpatient (AMB) | payer OTHER, SELFPAY ==
--- OUTSIDE RECORDS SUMMARY | 2025-06-09 12:57 | XMS_ITS | Clinical Summary ---
Author Organization [facility] Address [address] [place] [address] Phone Care Team Providers Care Ed Case Manager Name Role Phone Corine Alexandre MD Primary [...] 82 04/18/2017 7:50 AM EDT Temperature 36.9 C (98.5 F) 04/18/2017 7:50 AM EDT Respiratory Rate 19 04/18/2017 7:50 AM EDT [...] (2 of 3) 11/13/2014 09/18/2014 OSTEOPOROSIS SCREENING INITI AL (ONE-TIME) 2018 COVID-19 VACCINE (3 - 2023-2 5 season) 2024 01/24/2021, 01/03/2021 Adult Td,Tdap Booster 07/18/2024 07/18/2014 RSV VACCINE (1 - 1-dose 75+ series) 2028 SMOKING STATUS SCREENING (On ce After 26 Yrs) Completed 09/01/2022 HEPATITIS A VACCINES Aged Out No long er eligible based on patient's age to complete this topic HIB VACCINES Aged Out No longer eligi ble based on patient's age to complete this topic MENINGOCOCCAL VACCINES (ACWY) Aged Out No longer eligible based on patient's age to complete this topic MENINGOCOCCAL VACCINES (B) Aged Out N o longer eligible based on patient's age to complete this topic Medical Devices Not on file Insurance [facility] Advance Directives For more information, please contact: [phone] (9AM - 5PM Nicole/[facility], Thursday-Thursday) Documents on File Type Date Recorded Patient Shipping Associate Expl anation Healthcare Proxy 04/07/2017 10:13 AM jordon d on 04/03/2017 * Full Code (Confirmed) (Latest Code Status on File) Date Activated Date Inactivated Comments 04/06/2017 7:02 PM 04/18/2017 2:00 PM Question Answer Comments Code Discussion Comments: patient Care Teams Ed Case Manager Relationship Specialty Start Date End Date Corine Alexandre MD [address] [place] [address] PCP - General Internal Medicine 04/07/17 Additional Source Comments The information contained in this document represents components of the legal health record. It is not the complete legal health record.[facility]
--- OUTSIDE RECORDS SUMMARY | 2025-06-09 12:57 | XMS_ITS | Encounter Summary ---
Author Organization [facility] Address [address] [place] [address] Care Team Providers Care Roll Cutter Name Role Phone Colette Holman MD Primary Care Provider [phone]- [phone] Reason for Referral * Consultation (Routine) - Closed Specialty Diagnoses / Procedures Referred By Contac t Referred To Contact Pulmonary Disease Diagnoses Sleep apnea, unspecified type Colette Holman MD [address] [place] [address] Phone: tel: fax: [facility] [address] [place] [address] [place] [address] Phone: tel: fax: Referral ID Status Reason Start Date Expiration Date V isits Requested Visits Authorized [id number] Closed Specialty Services Required 05/25/2025 05/25/2026 1 1 Reason for Visit * Reason Onset Date Comments Referral 05/25/2025 Encounter Details Date Type Department Care Team (Late st Contact Info) Description 05/25/2025 Telephone Adult Medicine [facility] [address] [facility] [place] [address] Colette Holman MD [address] [place] [address] Referral Social History Tobacco Use Types Packs/Day Years [...] your loved ones. For example, early childhood coordinator or elderly care for an older [...] encounter Progress Notes * Bhavana Pérez - 05/25/2025 3:24 PM EDT REFERRAL THAT WAS PLACED IN OCTOBER WAS FOR [address] [place] [address], DR. OLIVERA IS AT [facility] Referral Request: What insurance does the patient have today? [employer] [id number] Referrals cannot be processed if the insurance is not accurate. If the insurance listed above in red is NO BILLING INFORMATION FOUND FOR THIS ENCOUTNER The patients correct insurance must be obtained and registered in [facility] or their referral can not be processed. Who is calling to request this referral? [facility] If the caller is not the patient, what is their name? Domi Ask the patient WHO referred them to this specialty: Not an initial visit; it is for follow up/continuation of care. Patients PCP is Holman FIRST and LAST NAME of SPECIALIST PATIENT is seeing: Antonio Olivera What specialty is this? Pulmo DIAGNOSIS Patient is being seen for (Not a body part or a procedure): Sleep apnea Have you seen this SPECIALIST for this PROBLEM/DX before? If YES, when? Yes. 03/16/25 Have you checked REVIEW or the APPT DESK to see if this referral has already been done or has visits left? yes Is this visit: Follow Up Address of Specialist: [address] [place] [address] [address] Gaby [place]ENDE[address] [address] Phone # of Specialist: [phone] Fax #: (if applicable): [phone] Does patient have an appointment scheduled?: yes Date of appointment- (including a retro-request): 06/09/25 Is this appointment related to: Not MVA, worker compensation, or surgery related documented in this encounter Plan of Treatment Scheduled Referrals Name Type Priority Associated Diagnoses Order Schedule Ambulatory referral to Pulmonology Outpatient Referral Routine Sleep apnea, unspecified type 1 Occurrences starting 05/25/2025 until 05/25/2026 documented as of this encounter Visit Diagnoses Diagnosis Sleep apnea, unspecified type- Primary documented in this encounter Additional Health Concerns Assessment Noted Time PHQ-9 Depression Total Score: 0 01/26/20 25 8:40 PM EDT documented as of this encounter Care Teams Roll Cutter Relationship Specialty Start Date End Date Colette Holman MD [address] [place] [address] PCP - General 06/15/24 documented as of this encounter
[2025-06-09 13:00] VITALS: BP 127/72; PULSE 95; O2SAT 96
--- NOTE | 2025-06-09 13:00 | A.OFFVIS_ITS ---
Vital Signs 06/09/25 13:00 Height 5 ft 6 in BP 127/72 Blood Pressure Location Lt brachial Position Sitting Pulse 95 Pulse Source Pulse Oximeter Pulse Oximetry (%) 96 Oxygen Delivery Method Room Air Comment patient refused weight Intake Visit Reasons: Obstructive sleep apnea Allergies metronidazole (From Flagyl) Allergy (Mild, Verified 06/09/25 13:06) Joint Pain HPI Comments Details: The patient is a 69 year woman with known history of significant daytime drowsiness. She does have an elevated [place] score of 11/24. The patient did have a sleep study back in 2020 was found to have an AHI of 67 events per hour. Therefore she was diagnosed with very severe ALEXANDR. She was quickly placed on PAP therapy. The rest med AirSense 11. With a nasal mask. But he has been very difficult for her to tolerated because she gets significant nasal congestion when she start using it. She feels like it is almost like an allergic reaction. She has not tried any other mask except the N30 I mask. On further questioning she does have issues with significant nasal congestion. She has a perforated septum although she is not use any recreational drugs she is not aware why the cartilage broke down. She denies any other cartilage involvement. She does have significant irritation. To the nasal passages and does get pressure sensation. She has never seen ENT for this. In the meantime I do believe that is important to further investigate was going on with her sinuses in order to be able to tolerate CPAP or APAP effectively. The patient has not had any any allergy testing which would be reasonable as well. As far as nasal spray she is concerned about using any nasal steroids. Specially with the epistaxis in the significant inflammation limitations of mucosa lining I do believe the inhaled cortical steroids could be dangerous. She is using Claritin and antihistamines as needed with some partial improvement. I will go ahead and send a ipratropium nasal spray just to see if we can dry up a little bit as she tries to go back to using her CPAP. I did reach out to the [employer] to get access to LV. I do believe she needs a mask fitting with a fullface mask, F40 to properly treat her sleep apnea without irritating her significant inflammation of the nasal passages. I did provide her with the Neti bottle. 03/16/2025 the patient is here for pulmonary follow-up visit. Overall she is doing okay. Still having same issues with her significant congestion or upper respiratory tract and sinuses that is keeping her from tolerate the CPAP. She did start the ipratropium nasal spray that seemed to help during the day but when she would put her CPAP mask on it would worsen again and if therefore she has not been to tolerated. The patient did get blood work including allergy testing. IgE levels were only 48 eosinophils were normal and the allergy panel was negative. In addition to that she did have a CT scan of the sinuses demonstrating mild maxillary sinusitis and a deviated septum along with perforation noted. The patient understands that based on his significant sinus congestion she is better off with a fullface mask. I am going to send a prescription to [employer] for 40 fullface mask to help us try to decrease some of the pressure buildup in her nasal passages. I am also going to request axis from her [employer] to be able to adjusting May she had accordingly. Maybe we can decrease the pressure some so she can tolerated better. But also we talked about the idiosyncratic reaction when we do not use any humidification for the dry air. They can result in a it isn't chronic worsening congestion which may be contributing to her symptoms. Therefore she is going to start adding humidity by adding distilled water to her chamber and to use it more effectively. 06/09/2025 the patient is here for a pulmonary follow-up visit. Overall she is doing a lot better. She is tolerating her CPAP now again. She realized it was the fact that she was not using water causing her to have significant paradoxical nasal congestion. Now that she added water distilled to her machine she is getting better humidification is tolerating her PAP better. She does want to stay with the nasal cradle mask. The N30 I. Although she did have significant air leakage based on her download. She is going to try to use the N30 for now and I did recommend using a chinstrap or using the CPAP tape. If she can not in his she starts developing significant dry mouth she can always consider switching over to a fullface mask. From a respiratory status the patient is doing well. Denies any epistaxis. She does not using any nasal sprays at this time. She can always consider saline gel to help her ease or so then some of those irregular mucosa findings of her nose and she can do that specially during the winter months that is tends to be sugar drier. The patient follow-up in a year so just to follow-up with her CPAP issues, if she has any issues prior to this she will call for an earlier evaluation. [facility] Medical History (Updated 06/11/25 @ 19:57 by Antonio Olivera MD) ALEXANDR (obstructive sleep apnea) Chronic sinusitis Epistaxis Allergy Social History Patient Tobacco Use Status: Never used Tobacco Review of Systems Const Reports daytime sleepiness and Reports weight loss Eyes Reports no additional complaints ENT Denies epistaxis, Reports nasal congestion, Reports nasal discharge, Denies nasal obstruction, Reports post nasal drip and Denies sinus pressure Card Denies chest pain Resp Reports cough GI Reports no additional complaints Musc Reports no additional complaints Skin/Breast Denies rash Endo Reports no additional complaints Adan/Lymph Reports no additional complaints Aller/Immun Reports no additional complaints Physical Exam Vital Signs: Last Vital Signs Pulse 95 06/09/25 13:00 BP 127/72 06/09/25 13:00 Pulse Ox 96 06/09/25 13:00 Oxygen Delivery Method Room Air 06/09/25 13:00 Const General: comfortable HEENT General nose exam: Abnormal mucous membranes and turbinates present erythematous (R>L) bilateral, Abnormal nasal septum present perforated (bleeding), Nasal discharge present and Epistaxis present Neck Neck: Yes supple Chest Chest palpation & inspection: normal inspection of the chest Resp Effort & Inspection: normal respiratory effort Auscultation: clear to auscultation bilaterally Cardio Heart sounds: S1 normal heart sound present and S2 normal heart sound present GI Palpation (GI): Soft to palpation Skin General skin exam: no rashes or lesions noted Extrem General: Yes no clubbing, cyanosis or edema Assessment & Plan Assessment & Plan (1) Allergy: Code(s): T78.40XA - Allergy, unspecified, initial encounter Category: Medical Qualifiers: Encounter type: initial encounter Qualified Code(s): T78.40XA - Allergy, unspecified, initial encounter (2) Epistaxis: Comment: better Code(s): R04.0 - Epistaxis Category: Medical (3) Chronic sinusitis: Code(s): J32.9 - Chronic sinusitis, unspecified Category: Medical Qualifiers: Sinusitis location: unspecified location Qualified Code(s): J32.9 - Chronic sinusitis, unspecified (4) Perforated nasal septum: Code(s): J34.89 - Other specified disorders of nose and nasal sinuses Category: Medical (5) ALEXANDR (obstructive sleep apnea): Code(s): G47.33 - Obstructive sleep apnea (adult) (pediatric) Category: Medical Plan Ipratropium nasal spray as needed Astelin nasal spray NEEDED CONTINUE APAP with Full face mask, F40. Requesting supplies from her [employer]. Add Humidification F/U 12-16 months Coding Level of Care Code Est Pt Level 4 (15434) Diagnoses Allergy, initial encounter T78.40XA Encounter type: initial encounter Epistaxis R04.0 Chronic sinusitis, unspecified location J32.9 Sinusitis location: unspecified location Perforated nasal septum J34.89 ALEXANDR (obstructive sleep apnea) G47.33 Time Spent (min) 16
== END 2025-06-09 13:24 | disposition home or self-care (01) ==
LOC: HO.HPS 12:55
PROVIDERS: PCP Internal Medicine; Visit Provider Hospitalist
DX: T78.40XA Allergy, unspecified, initial encounter (principal); R04.0 Epistaxis; J32.9 Chronic sinusitis, unspecified; J34.89 Other specified disorders of nose and nasal sinuses; G47.33 Obstructive sleep apnea (adult) (pediatric)
CPT/HCPCS: 99214